=== PATIENT | female | born 2000 | race African-American/Black ===

== ENCOUNTER 2022-08-21 06:29 | Inpatient (IN) ==
[2022-08-21 06:59] LABS: Calcium Oxalate Crystals,Urine Many /HPF (Few); Mucus,Urine Many /LPF (Occasional); RBC,Urine 2 /HPF (0-4); Squamous Epithelial Cell,Urine Occasional /HPF (0-10)
[2022-08-21 07:00] LABS: Bilirubin,Urine Negative (Negative); Blood, Urine Negative (Negative); Glucose,Urine (UA) Negative (Negative); Ketones,Urine Negative (Negative); Nitrite,Urine Negative (Negative); Protein,Urine 30 mg/dL (Negative); Urine Appearance Clear (Clear); Urine Color Yellow (Yellow); Urine Specific Gravity > 1.030 (1.001-1.035); Urine Urobilinogen 0.2 eU/dL (<2.0)
[2022-08-21] MEDS: LACTATED RINGERS 1,000 ML IV SCH ×2 (07:05→09:04)
[2022-08-21] MEDS ORDERED: OXYTOCIN/LR 20 UNIT/1,000 ML BAG IV ONE ×3 (08:45→13:53)
[2022-08-21] MEDS ORDERED: miSOPROStoL 200 MCG TABLET RECTAL PRN (08:45)
[2022-08-21] MEDS ORDERED: TRANEXAMIC ACID 1,000 MG in SODIUM CHLORIDE 0.9% 100 ML IV PRN (08:45)
[2022-08-21] MEDS ORDERED: METHYLERGONOVINE 0.2 MG/1 ML AMP IM PRN (08:45)
[2022-08-21] MEDS ORDERED: CARBOPROST TROMETHAMINE 250 MCG/ML AMP IM PRN (08:45)
[2022-08-21] MEDS ORDERED: LACTATED RINGERS 1,000 ML IV ONE (08:45)
[2022-08-21] MEDS ORDERED: ONDANSETRON 4 MG/2 ML VIAL IV PRN (08:45)
[2022-08-21] MEDS ORDERED: hydrOXYzine HCL 25 MG/1 ML VIAL IM PRN (08:48)
[2022-08-21] MEDS ORDERED: PROMETHAZINE 25 MG/1 ML VIAL IM ONE (08:48)
[2022-08-21] MEDS ORDERED: ePHEDrine 50 MG/ML VIAL IV PRN (08:48)
[2022-08-21] MEDS ORDERED: CITRIC ACID/SODIUM CITRATE 30 ML UDCUP PO ONE (08:48)
[2022-08-21] MEDS ORDERED: diphenhydrAMINE 50 MG/1 ML VIAL IV PRN ×2 (08:48)
[2022-08-21] MEDS ORDERED: ONDANSETRON 4 MG/2 ML VIAL IV ONE (08:48)
[2022-08-21] MEDS ORDERED: NALOXONE 0.4 MG/ML VIAL IV PRN (08:48)
[2022-08-21] MEDS ORDERED: FAMOTIDINE 20 MG/2 ML VIAL IV ONE (08:48)
[2022-08-21] MEDS ORDERED: OXYTOCIN/LR 20 UNIT/1,000 ML BAG IV SCH (09:00)
[2022-08-21] MEDS ORDERED: LACTATED RINGERS 1,000 ML IV SCH (09:00)
[2022-08-21] MEDS ORDERED: fentaNYL 2 MCG/ROPIV 0.2% EPID 100 ML EPIDURAL SCH (09:00)
[2022-08-21 09:15] LABS: Basophils % 0.2 % (0.0-0.8); Eosinophils % 0.1 % (0.00-10.9); Hematocrit 43.3 VOL% (35.7-47.0); Hemoglobin 14.1 GM/DL (12.0-16.0); Immature Granulocytes % 0.3 %; Immature Granulocytes Absolute 0.04 #; Lymphocytes % 7.7 % (21.3-54.2); Mean Corpuscular HGB Conc 32.6 GM/DL (32-36); Mean Corpuscular Volume 81.4 FL (87-102); Mean Platelet Volume 9.8 FL (9.6-12.0); Monocytes # 0.4 10*3/uL (0.11-0.8); Monocytes % 3.4 % (1.7-12.7); Neutrophils % 88.3 % (38.7-73.9); Platelet Count 207 T/CUMM (130-400); Red Blood Count 5.32 MC/CUMM (3.8-5.5); Red Cell Distribution Width 13.6 % (9.3-17.3); White Blood Count 12.7 T/CUMM (4-12)
[2022-08-21] MEDS ORDERED: TRANEXAMIC ACID 1,000 MG/10 ML VIAL ONE (09:35)
[2022-08-21] MEDS ORDERED: miSOPROStoL 200 MCG TABLET ONE (09:35)
[2022-08-21] MEDS ORDERED: SODIUM CHLORIDE 0.9% 0 ML IV ONE (09:35)
[2022-08-21] MEDS ORDERED: CARBOPROST TROMETHAMINE 250 MCG/ML AMP IM ONE (09:36)
[2022-08-21] MEDS ORDERED: METHYLERGONOVINE 0.2 MG/1 ML AMP ONE (09:36)
[2022-08-21 10:44] LABS: Cord Arterial Blood HCO3 13.2 MMOL/L
[2022-08-21 10:48] LABS: Cord Venous Blood HCO3 16.5 MMOL/L; Cord Venous Blood PCO2 46.9 MMHG
[2022-08-21] MEDS ORDERED: oxyCODONE/ACETAMINOPHEN 5-325 MG TABLET PO PRN (13:53)
[2022-08-21] MEDS ORDERED: LANOLIN 50% CREAM 0.3 OZ TUBE TOP PRN (13:53)
[2022-08-21] MEDS ORDERED: IBUPROFEN 800 MG TABLET PO PRN (13:53)
[2022-08-21] MEDS ORDERED: ACETAMINOPHEN 325 MG TABLET PO PRN (13:53)
[2022-08-21] MEDS ORDERED: BISACODYL 10 MG SUPP RECTAL PRN (13:53)
[2022-08-21] MEDS ORDERED: MEASLES/MUMPS/RUBELLA VACCINE 0.5 ML VIAL SUBCUT ONE (13:53)
[2022-08-21] MEDS ORDERED: DIPH/TET/ACEL PERT BOOSTER VACCINE 0.5 ML VIAL IM ONE (13:53)
[2022-08-21] MEDS ORDERED: HYDROCORTISONE 2.5% RECTAL CREAM 30 GM TUBE TOP PRN (13:53)
[2022-08-21] MEDS ORDERED: BENZOCAINE 20%/MENTHOL 0.5% SPRAY 56 GM CAN TOP PRN (13:53)
[2022-08-21] MEDS ORDERED: RHO(D) IMMUNE GLOBULIN 300 MCG SYRINGE IM ONE (13:53)
[2022-08-21] MEDS: DOCUSATE SODIUM 100 MG CAPSULE PO SCH (21:16)
[2022-08-21] MEDS: WITCH HAZEL PADS 100/JAR TOP PRN (22:18)
[2022-08-21] MEDS: oxyCODONE/ACETAMINOPHEN 5-325 MG TABLET PO PRN (23:18)
[2022-08-22 04:32] LABS: Basophils % 0.2 % (0.0-0.8); Eosinophils # 0.1 10*3/uL (0.0-0.87); Eosinophils % 0.4 % (0.00-10.9); Hematocrit 34.1 VOL% (35.7-47.0); Hemoglobin 11.1 GM/DL (12.0-16.0); Immature Granulocytes % 0.6 %; Immature Granulocytes Absolute 0.09 #; Lymphocytes # 2.6 10*3/uL (1.4-4.0); Lymphocytes % 18.4 % (21.3-54.2); Mean Corpuscular HGB Conc 32.6 GM/DL (32-36); Mean Corpuscular Volume 81.8 FL (87-102); Mean Platelet Volume 9.8 FL (9.6-12.0); Monocytes # 1.1 10*3/uL (0.11-0.8); Monocytes % 8.2 % (1.7-12.7); Neutrophils % 72.2 % (38.7-73.9); Platelet Count 199 T/CUMM (130-400); Red Blood Count 4.17 MC/CUMM (3.8-5.5); Red Cell Distribution Width 13.3 % (9.3-17.3); White Blood Count 13.9 T/CUMM (4-12)
[2022-08-22] MEDS: oxyCODONE/ACETAMINOPHEN 5-325 MG TABLET PO PRN (06:06)
[2022-08-22] MEDS: DOCUSATE SODIUM 100 MG CAPSULE PO SCH ×2 (08:21→21:55)
[2022-08-23 08:02] VITALS: BP 137/78
[2022-08-23] MEDS: WITCH HAZEL PADS 100/JAR TOP PRN (09:26)
[2022-08-23] MEDS: DOCUSATE SODIUM 100 MG CAPSULE PO SCH (09:26)
== END 2022-08-23 10:55 | disposition home or self-care (01) | DRG 560 ==
LOC: N.LD 06:29 → N.OB 14:05
PROVIDERS: ADMIT Obstetrics & Gynecology; ATTEND Obstetrics & Gynecology